=== PATIENT | female | born 2000 | race Hispanic/Latino ===

== ENCOUNTER 2023-02-23 02:41 | Emergency (ER) | payer MEDICAID ==
[~2023-02-23] VITALS: Ht 162.6 cm; Wt 109.8 kg
[2023-02-23 06:17] LABS: BASOPHILS # (AUTO) 0.06 K/uL (0.00-0.20); BASOPHILS % (AUTO) 0.6 % (0.0-5.0); EOSINOPHILS # (AUTO) 0.27 K/uL (0.00-0.70); EOSINOPHILS % (AUTO) 2.6 % (0.0-8.0); HEMATOCRIT 29.6 % (36-48); IMMATURE GRANULOCYTE ABSOLUTE 0.03 K/uL (0-1); LYMPHOCYTES # (AUTO) 1.9 K/uL (1.0-4.8); LYMPHOCYTES % (AUTO) 18.3 % (21.0-51.0); MEAN CORPUSCULAR HEMOGLOBIN 19.5 pg (27.0-33.0); MEAN CORPUSCULAR VOLUME 69.5 fL (79-99); MONOCYTES # (AUTO) 0.6 K/uL (0.1-1.0); MONOCYTES % (AUTO) 6.1 % (3.0-13.0); NEUTROPHILS # (AUTO) 7.5 K/uL (1.8-7.7); NEUTROPHILS % (AUTO) 72.1 % (40.0-77.0); PLATELET COUNT (AUTO) 454 K/uL (130-400); RED BLOOD CELL COUNT(AUTO) 4.26 MIL/uL (4.00-5.50); RED CELL DISTRIBUTION WIDTH 19.8 % (11.0-15.5); WHITE BLOOD COUNT (AUTO) 10.5 K/uL (4.8-10.8)
[2023-02-23 06:32] LABS: ALBUMIN 2.9 g/dL (3.5-5.0); BILIRUBIN,TOTAL 0.3 mg/dL (0.2-1.0); CREATININE 0.6 mg/dL (0.5-1.5); POTASSIUM 3.7 mmol/L (3.5-5.1); TOTAL PROTEIN, SERUM 7.5 g/dL (6.0-8.3)
[2023-02-23 06:44] LABS: RAPID GROUP A STREP negative (NEGATIVE)
[2023-02-23 06:51] LABS: SARS-CoV-2, RNA, NAAT NEGATIVE SARS CoV-2 (NEGATIVE)
[2023-02-23 06:55] LABS: INFLUENZA TYPE A Negative For Type A (NEGATIVE); INFLUENZA TYPE B Negative For Type B (NEGATIVE)
[2023-02-23 08:01] LABS: APPEARANCE,URINE CLEAR (CLEAR); BILIRUBIN,URINE NEGATIVE (NEGATIVE); COLOR,URINE COLORLESS (YELLOW); GLUCOSE, URINE (UA) NEGATIVE (NEGATIVE); KETONES,URINE NEGATIVE (NEGATIVE); LEUKOCYTE ESTERASE ,URINE NEGATIVE Leu/uL (NEGATIVE); NITRATE,URINE NEGATIVE (NEGATIVE); OCCULT BLOOD,URINE NEGATIVE (NEGATIVE); PROTEIN,URINE NEGATIVE (NEGATIVE); UROBILINOGEN,URINE 0.2 mg/dL (0.2-1.0)
[2023-02-23 08:02] LABS: ADD UA MICROSCOPIC NO
[2023-02-23] MEDS ORDERED: IBUP-2070 PO (08:22)
[2023-02-23 09:17] VITALS: BP 132/75; PULSE 78; RESP 18; O2SAT 98
[2023-02-27 17:10] LABS: TYPHUS FEVER IGG <1:64 (Neg:<1:64); TYPHUS FEVER IGM <1:64 (Neg:<1:64)
== END 2023-02-23 09:19 | disposition home or self-care (01) ==
LOC: EDH 02:41
DX: Q74.2 Other congenital malformations of lower limb(s), including pelvic girdle (principal); M13.0 Polyarthritis, unspecified; R50.9 Fever, unspecified; Z90.49 Acquired absence of other specified parts of digestive tract; Z20.822 Contact with and (suspected) exposure to COVID-19
CPT/HCPCS: 99284; 87635; 80053; 85025; 87040 ×2; 87880; 87804 ×2; 83605; 81003; 36415; 86757; C9803

== ENCOUNTER 2024-10-09 21:35 | Emergency (ER) | payer BC, MEDICAID ==
[~2024-10-09] VITALS: Ht 162.6 cm; Wt 114.3 kg
[~2024-10-09 21:35] MED LIST: IBUP-2070 PO
--- NOTE | 2024-10-09 21:54 | NUR ---
PT STATES SHE TURNED IN URINE SAMPLE AT TRIAGE DESK
--- NOTE | 2024-10-09 22:03 | ERN ---
General Chief Complaint: Abdominal Pain Stated Complaint: C/O ABD PAIN X 3 DAYS Time Seen by MD: 21:38 History of Present Illness Initial Comments Patient is an obese healthy 24-year-old female who has a history of GERD and acid reflux. She is to take Tums for it and then she stopped for quite a while. The pain has returned it is exactly where it normally is for her they much much worse and in addition she is feeling a little tightness and acid taste in her throat. She took some Tums today a day only transiently improved the pain. Allergies: Coded Allergies: No Known Drug Allergies (Unverified Allergy, Unknown, 02/23/23) Home Meds Active Scripts Ibuprofen (Ibuprofen) 600 Mg Tablet, 600 MG PO Q6H PRN for PAIN, #20 TAB Prov:KALIN MIRANDA MD 02/23/23 Past Medical History Past Medical History: Other Medical History Other: HX OF ACID REFLUX Past Surgical History: Appendectomy, Female( History) LMP: October 01, 2024 Constitutional: (-) chills, (-) diaphoresis, (-) fever, (-) malaise, (-) weakness, (-) other documentation EENTM: (-) eye pain, (-) blurred vision, (-) tearing, (-) double vision, (-) ear pain, (-) ear discharge, (-) nose pain, (-) nose congestion, (-) throat pain, (-) Throat swelling, (-) mouth pain, (-) tooth pain, (-) mouth swelling, (-) other documentation Respiratory: (-) cough, (-) orthopnea, (-) short of breath, (-) stridor, (-) wheezing, (-) other documentation Cardiovascular: (-) chest pain, (-) edema, (-) palpitations, (-) syncope, (-) dyspnea on exertion, (-) other documentation Gastrointestinal/Abdominal: (-) nausea, (-) vomiting, (-) diarrhea, (-) abdominal pain, (-) abdominal distention, (-) constipation, (-) rectal bleeding, (-) dark stool/melena, (-) other documentation Musculoskeletal: (-) Neck pain, (-) back pain, (-) Flank Pain, (-) joint pain, (-) joint swelling, (-) muscle pain, (-) muscle stiffness, (-) gout, (-) other documentation Skin: (-) laceration, (-) contusion, (-) abrasion, (-) abscess, (-) rash, (-) change in color, (-) change in hair, (-) change in nails, (-) diaphoresis, (-) dryness, (-) other documentation Neuro: (-) altered mental status, (-) headache, (-) syncope, (-) paralysis, (-) numbness, (-) seizure, (-) pre-existing deficit, (-) tremors, (-) weakness, (-) dizziness, (-) slurred speech, (-) vertigo, (-) other documentation Physical Exam General Appearance: (+) no apparent distress Orientation: (+) alert Head/Face Trauma: No Eye: bilateral eye normal inspection, bilateral eye PERRL, bilateral eye EOMI Ear, Nose, Throat: (+) hearing grossly normal, (+) normal ENT inspection Neck: (+) normal inspection, (+) full range of motion Respiratory: (+) chest non-tender, (+) lungs clear, (+) well ventilated Heart: (+) regular, (+) no gallop Vascular: (+) no edema Gastrointestinal: (+) soft, (+) non-tender, (+) bowel sound absent MDM I will give the patient a GI cocktail and depending on the results we will make further plans. The GI cocktail has completely resolved the patient's symptoms. Therefore I feel comfortable discharging her with a simple diagnosis of GERD. I will give her a prescription for lansoprazole after an IV dose of lansoprazole. ED Course Orders Procedure Category Date Status Time Lidocaine Hcl 2% PHA 10/09/24 Complete Viscous (Lidocaine Hcl 22:30 Mag/Alum/Simeth 30ml PHA 10/09/24 Complete (Maalox Plus 30ml) 22:30 Dicyclomine Hcl PHA 10/09/24 Complete (Bentyl 10mg/5ml 22:30 Current Medications Medications (Trade) Dose Ordered Sig/Shantanu Route PRN Reason Start Time Stop Time Status Last Admin Dose Admin Al Hydroxide/Mg Hydroxide (MAALox PLUS 30ML) 30 ml ONCE ONCE PO 10/09/24 22:30 10/09/24 22:31 DC 10/09/24 22:21 Dicyclomine HCl (Bentyl 10mg/5ml Syrup) 10 mg ONCE ONCE PO 10/09/24 22:30 10/09/24 22:31 DC 10/09/24 22:22 Lidocaine HCl (Lidocaine HCl 2% Viscous) 10 ml ONCE ONCE PO 10/09/24 22:30 10/09/24 22:31 DC 10/09/24 22:21 Vital Signs Date Time Temp Pulse Resp B/P (MAP) Pulse Ox O2 Delivery O2 Flow Rate FiO2 10/09/24 21:36 97.9 85 20 118/81 98 Room Air DX & DISP Disposition: Discharge Departure Impression: Primary Impression: GERD (gastroesophageal reflux disease) Condition: Stable Scripts Lansoprazole (Lansoprazole) 30 Mg Capsule.dr 1 CAP PO DAILY for 30 Days, #30 CAP 0 Refills Prov: LAWRENCE JAIN MD 10/09/24 Referrals: OLU MORE DO (PCP) LAWRENCE JAIN MD October 09, 2024 22:03
[2024-10-09] MEDS: LIDOCAINE HCL 2% VISCOUS 15 ML UDCUP PO ONE (22:21)
[2024-10-09] MEDS: MAG/ALUM/SIMETH 30 ML UDCUP PO ONE (22:21)
[2024-10-09] MEDS: DICYCLOMINE HCL 10 MG/5 ML ML PO ONE (22:22)
[2024-10-09] MEDS ORDERED: LANS30CA55 PO (22:50)
[2024-10-09] MEDS ORDERED: PANTOPrazole 40 MG/VIAL IVP ONE (23:00)
[2024-10-09 23:15] VITALS: BP 116/67; PULSE 71; RESP 18; TEMP 97.7; O2SAT 99
== END 2024-10-09 23:16 | disposition home or self-care (01) ==
LOC: EDH 21:35
DX: K21.9 Gastro-esophageal reflux disease without esophagitis (principal); E66.9 Obesity, unspecified; Z90.49 Acquired absence of other specified parts of digestive tract; Z68.52 Body mass index [BMI] pediatric, 5th percentile to less than 85th percentile for age
CPT/HCPCS: 99283